=== PATIENT | female | born 1960 | race American Indian/Alaskan Native ===

== ENCOUNTER 2021-12-15 19:48 | Inpatient (IN) | payer SELFPAY ==
[2021-12-15] MEDS ORDERED: PANTOPRAZOLE 40 MG INJ IV ONE (20:16)
[2021-12-15] MEDS ORDERED: NITROGLYCERIN 0.4 MG TAB SUBL SL PRN ×2 (20:16→23:17)
[2021-12-15] MEDS ORDERED: METOCLOPRAMIDE 10 MG TAB PO ONE (20:16)
--- NOTE | 2021-12-15 20:18 | Emergency Department Report ---
ED General Adult HPI - General Chief complaint: Weakness Stated complaint: SYNOCOPE Time Seen by Provider: 12/15/21 19:55 Source: patient, EMS ( EMS documentation not available at time of chart dictation ), RN notes reviewed Mode of arrival: Stretcher Limitations: No Limitations - History of Present Illness Initial comments: Primary CARE doctor: [facility] Past medical history: Heart disease, unknown ejection fraction, diabetes, hypertension, neuropathy, possible history of breast cancer. The patient is a 61-year-old female. She presents to the ER today with a complaint of possible syncope. Patient reports that she was at the [employer], walking around," the next thing I knew I blacked out, and people were over me." Prior to the event, the patient denies physical pain. She is not sure if she hit her head, but believes that she may have. She currently denies headache and neck pain, but admits to central chest pressure. She denies vomiting, diaphoresis, exertional shortness of breath, urinary symptoms. She denies travel, surgery, immobilization, DVT and PE risk factors. She does admit to chronic neuropathic pain in her lower extremities. She feels like her chest discomfort is "coming from my reflux." -: Sudden Severity scale (0 -10): 0 Improves with: none Worsens with: none - Related Data Allergies Allergy/AdvReac Type Severity Reaction Status Date / Time No Known Allergies Allergy Verified 12/15/21 21:23 ED Review of Systems ROS: Stated complaint: SYNOCOPE Other details as noted in HPI Constitutional: denies: fever Eyes: denies: vision change ENT: denies: epistaxis Respiratory: denies: cough Cardiovascular: chest pain, syncope Gastrointestinal: denies: abdominal pain Musculoskeletal: myalgia Neurological: other (Neuropathic pain) Hematological/Lymphatic: denies: easy bleeding ED Past Medical Hx - Past Medical History Hx Hypertension: Yes Hx Diabetes: Yes Hx of Cancer: Yes (breast) Additional medical history: pt reports that she has been told that she has clogged arteries - Surgical History Past Surgical History?: Yes Hx Breast Surgery: Yes - Social History Smoking Status: Never Smoker Substance Use Type: None ED Physical Exam - General Limitations: No Limitations General appearance: alert, in no apparent distress - Head Head exam: Present: atraumatic, normocephalic - Eye Eye exam: Present: normal appearance, PERRL, EOMI. Absent: nystagmus - ENT ENT exam: Present: normal exam, normal orophraynx, mucous membranes moist, normal external ear exam - Neck Neck exam: Present: normal inspection, full ROM. Absent: tenderness, meningismus - Respiratory Respiratory exam: Present: normal lung sounds bilaterally. Absent: respiratory distress, wheezes, rales, rhonchi, stridor, decreased breath sounds - Cardiovascular Cardiovascular Exam: Present: regular rate, normal rhythm, normal heart sounds. Absent: bradycardia, tachycardia, irregular rhythm, systolic murmur, diastolic murmur, rubs, gallop - GI/Abdominal GI/Abdominal exam: Present: soft, normal bowel sounds. Absent: distended, tenderness, guarding, rebound, rigid, pulsatile mass - Extremities Exam Extremities exam: Present: normal inspection, full ROM, other (2+ pulses noted in the bilateral upper and lower extremities. There is no long bony tenderness. The muscular compartments are soft. The pelvis is stable. Allodynia appreciated to the bilateral lower extremities.). Absent: pedal edema, calf tenderness - Back Exam Back exam: Present: normal inspection. Absent: tenderness, CVA tenderness (R), CVA tenderness (L), paraspinal tenderness, vertebral tenderness - Neurological Exam Neurological exam: Present: alert, oriented X3, other (No facial droop. Tongue midline. Extraocular movements intact bilaterally. Facial sensation intact to light touch in V1, V2, V3 distribution bilaterally. 5 and a 5 strength in 4 extremities. Sensation intact to light touch in 4 extremities.). Absent: motor sensory deficit - Psychiatric Psychiatric exam: Present: normal affect, normal mood - Skin Skin exam: Present: warm, dry, intact, normal color. Absent: rash ED Course Vital Signs 12/15/21 12/15/21 12/15/21 20:00 20:20 20:21 Temperature 98.7 F Pulse Rate 90 Respiratory 16 Rate Blood Pressure 159/70 [Left] O2 Sat by Pulse 98 98 Oximetry - Reevaluation(s) Reevaluation #1: 12/15/21 21:19 Differential diagnosis, include but not limited to: Orthostasis, vagal event, acute coronary syndrome, structural cardiac disease, pulmonary embolism, closed head injury, electrolyte derangement Assessment and plan: 61-year-old female, who was afebrile, with reassuring vital signs, clinically sober with a GCS of 15, not currently tachycardic, tachypneic or hypoxic, low risk by Wells criteria for pulmonary embolism, with a negative D-dimer, moderate risk for major adverse cardiac event as per heart score, and [place] syncope rule. Treat patient's symptoms. Obtain appropriate laboratory studies. Admit patient to the medical service once initial diagnostics have resulted. Discussed this with the patient. She is agreeable to this plan of care. 12/15/21 23:12 CT scan of the brain negative for acute findings. Hyperglycemia appreciated. Insulin noted hospital physician, Dr. Marianela Gilbert to admit to [facility] ED Medical Decision Making - Lab Data Result diagrams: 12/15/21 20:41 12/15/21 20:41 Lab Results 12/15/21 12/15/21 Range/Units 20:41 20:41 WBC 10.3 (4.5-11.0) K/mm3 RBC 4.83 (3.65-5.03) M/mm3 Hgb 12.3 (10.1-14.3) gm/dl Hct 38.7 (30.3-42.9) % MCV 80 (79-97) fl MCH 25 L (28-32) pg MCHC 32 (30-34) % RDW 15.8 H (13.2-15.2) % Plt Count 318 (140-440) K/mm3 Lymph % (Auto) 23.2 (13.4-35.0) % [place] % (Auto) 5.8 (0.0-7.3) % Eos % (Auto) 2.8 (0.0-4.3) % Baso % (Auto) 1.1 (0.0-1.8) % Lymph # (Auto) 2.4 (1.2-5.4) K/mm3 [place] # (Auto) 0.6 (0.0-0.8) K/mm3 Eos # (Auto) 0.3 (0.0-0.4) K/mm3 Baso # (Auto) 0.1 (0.0-0.1) K/mm3 Seg Neutrophils % 67.1 (40.0-70.0) % Seg Neutrophils # 6.9 (1.8-7.7) K/mm3 D-Dimer 219.70 (0-234) ng/mlDDU Vital Signs 12/15/21 12/15/21 12/15/21 20:00 20:20 20:21 Temperature 98.7 F Pulse Rate 90 Respiratory 16 Rate Blood Pressure 159/70 [Left] O2 Sat by Pulse 98 98 Oximetry - EKG Data -: EKG Interpreted by Nc EKG shows normal: sinus rhythm Rate: normal - EKG Data 12/15/21 21:17 The EKG is interpreted at 19: 59 Sinus rhythm, 87 bpm there is normal axis, normal P wave axis, high left ventricular voltage/left ventricular hypertrophy, borderline atrial enlargement and motion artifact. Q waves noted in inferior leads. This is an abnormal EKG. This is not a STEMI. There is no prior for comparison. - Radiology Data Radiology results: pending, report reviewed, image reviewed CHEST 1 VIEW INDICATION: Syncope. COMPARISON: None. FINDINGS: Support devices: None. Heart: Normal. Lungs/Pleura: No acute pulmonary or pleural findings. IMPRESSION: 1. No acute findings. Signer Name: Arvind Cunningham MD Signed: 12/15/2021 7:42 PM Workstation Name: [id number] HEAD WITHOUT CONTRAST INDICATION / CLINICAL INFORMATION: Syncope. TECHNIQUE: All CT scans at this location are performed using CT dose reduction for ALARA by means of automated exposure control. COMPARISON: None available. FINDINGS: HEMORRHAGE: None. ACUTE INFARCTION: No Significant Abnormality MASS/MASS EFFECT: No Significant Abnormality CEREBRAL PARENCHYMA: No acute focal attenuation abnormality. Symmetric calcifications of the bilateral basal ganglia. VENTRICULAR SYSTEM: Normal in size and morphology for the patient's age. ORBITS: Normal as visualized. SKULL: No significant abnormality. PARANASAL SI NUSES / MASTOID AIR CELLS: Normal as visualized. ADDITIONAL FINDINGS: None. IMPRESSION: 1. No acute intracranial abnormality. Signer Name: Nilesh Benitez MD Signed: 12/15/2021 9:35 PM Critical care attestation.: If time is entered above; I have spent that time in minutes in the direct care of this critically ill patient, excluding procedure time. ED Disposition Clinical Impression: Acute chest pain, Syncope, Closed head injury, Hyperglycemia Disposition: 09 ADMITTED INPATIENT Is pt being admited?: Yes Does the pt Need Aspirin: No Condition: Good Instructions: Chest Pain (ED), Syncope (ED) Referrals: YAIMA HINKLE MD [Primary Care Provider] - 3-5 Days Heart Score - HEART Score History: Slightly suspicious EKG: Non-specific Age: 45-65 Risk factors: > 3 risk factors or hx of atherosclerotic disease Troponin: < normal limit HEART Score: 4 - EKG Read Time Time EKG Completed: 19:59 EKG Read Time: 19:59 - Critical Actions Critical Actions: 4-6 pts:12-16.6% risk of adverse cardiac event. Should be admitted
--- NOTE | 2021-12-15 20:46 | XRay Report ---
CHEST 1 VIEW INDICATION: Syncope. COMPARISON: None. FINDINGS: Support devices: None. Heart: Normal. Lungs/Pleura: No acute pulmonary or pleural findings. IMPRESSION: 1. No acute findings. Signer Name: Arvind Cunningham MD Signed: 12/15/2021 8:42 PM Workstation Name: [id number]
[2021-12-15 21:02] LABS: Basophils # (Auto) 0.1 K/mm3 (0.0-0.1); Basophils % (Auto) 1.1 % (0.0-1.8); Eosinophils # (Auto) 0.3 K/mm3 (0.0-0.4); Eosinophils % (Auto) 2.8 % (0.0-4.3); Hematocrit 38.7 % (30.3-42.9); Hemoglobin 12.3 gm/dl (10.1-14.3); Lymphocytes # (Auto) 2.4 K/mm3 (1.2-5.4); Lymphocytes % (Auto) 23.2 % (13.4-35.0); Mean Corpuscular HGB Conc 32 % (30-34); Mean Corpuscular Volume 80 fl (79-97); Monocytes # (Auto) 0.6 K/mm3 (0.0-0.8); Monocytes % (Auto) 5.8 % (0.0-7.3); Platelet Count 318 K/mm3 (140-440); Red Blood Count 4.83 M/mm3 (3.65-5.03); Red Cell Distribution Width 15.8 % (13.2-15.2)
[2021-12-15 21:17] LABS: INR 0.82 (0.87-1.13)
[2021-12-15 21:32] LABS: Alanine Aminotransferase 28 units/L (7-56); Albumin 3.9 g/dL (3.9-5); BUN/Creatinine Ratio 21; Blood Urea Nitrogen 19 mg/dL (7-17); Calcium 10.2 mg/dL (8.4-10.2); Hemolysis Index 27
[2021-12-15] MEDS ORDERED: INSULIN REGULAR, HUMAN 100 UNITS/1 ML IV ONE (21:36)
[2021-12-15] MEDS ORDERED: LACTATED RINGERS 1,000 ML IV ONE (22:37)
--- NOTE | 2021-12-15 22:39 | Cat Scan Report ---
CT HEAD WITHOUT CONTRAST INDICATION / CLINICAL INFORMATION: Syncope. TECHNIQUE: All CT scans at this location are performed using CT dose reduction for ALARA by means of automated exposure control. COMPARISON: None available. FINDINGS: HEMORRHAGE: None. ACUTE INFARCTION: No Significant Abnormality MASS/MASS EFFECT: No Significant Abnormality CEREBRAL PARENCHYMA: No acute focal attenuation abnormality. Symmetric calcifications of the bilatera l basal ganglia. VENTRICULAR SYSTEM: Normal in size and morphology for the patient's age. ORBITS: Normal as visualized. SKULL: No significant abnormality. PARANASAL SINUSES / MASTOID AIR CELLS: Normal as visualized. ADDITIONAL FINDINGS: None. IMPRESSION: 1. No acute intracranial abnormality. Signer Name: Nilesh Benitez MD Signed: 12/15/2021 10:35 PM Workstation Name: [id number]
[2021-12-15] MEDS ORDERED: ASPIRIN 81 MG TAB CHEW PO ONE (23:13)
[2021-12-15] MEDS ORDERED: DEXTROSE 50% IN WATER (25GM) 50 ML SYRINGE IV PRN (23:17)
[2021-12-15] MEDS ORDERED: MORPHINE 4 MG/1 ML INJ IV PRN ×2 (23:17)
[2021-12-15] MEDS ORDERED: ACETAMINOPHEN 325 MG TAB PO PRN ×2 (23:17)
[2021-12-15] MEDS ORDERED: MORPHINE 2 MG/1 ML INJ IV PRN (23:17)
[2021-12-15] MEDS ORDERED: traMADol 50 MG TAB PO PRN (23:17)
[2021-12-15] MEDS ORDERED: MAGNESIUM HYDROXIDE (MOM) ORAL LIQD UDC PO PRN (23:17)
--- NOTE | 2021-12-15 23:32 | History and Physical Report ---
History of Present Illness Date of examination: 12/15/21 Date of admission: 12/15/2021 Chief complaint: Syncope Chest Pain History of present illness: 61-year-old female with known history of hypertension, diabetes mellitus and history of breast cancer presents to the emergency room today with a complaint of syncope. Patient also indicates that she has had substernal chest pain. She was at a grocery store when she suddenly passed out. She denies any headache or dizziness, no fever or chills, no nausea vomiting and no abdominal pain. Patient denies any hematuria or dysuria. Chest pain has been nonradiating, no relieving or exacerbating factor. Work-up in the emergency room today, significant findings were that of hypoglycemia to 40, troponins were negative. Chest x-ray showed no acute findings. CT scan of the head shows no acute abnormality. Past History Past Medical History: diabetes, hypertension, other (Neuropathy, history of breast cancer) Past Surgical History: Other (Breast surgery) Social history: no significant social history Family history: no significant family history Medications and Allergies Allergies Allergy/AdvReac Type Severity Reaction Status Date / Time No Known Allergies Allergy Verified 12/15/21 21:23 Active Meds: Active Medications Lactated Ringer's (Lactated Ringers) 1,000 mls @ 999 mls/hr IV BOLUS ONE Stop: 12/15/21 23:37 Nitroglycerin (Nitroglycerin 0.4 Mg Tab Subl) 0.4 mg SL .Q5MIN PRN PRN Reason: Chest Pain Review of Systems Constitutional: no fever, no chills Ears, nose, mouth and throat: no nasal congestion, no sore throat Cardiovascular: chest pain, no palpitations Respiratory: no cough, no shortness of breath Gastrointestinal: no nausea, no vomiting, no diarrhea Genitourinary Female: no pelvic pain, no flank pain, no dysuria, no hematuria Musculoskeletal: no neck pain, no low back pain Integumentary: no rash, no pruritis Neurological: no headaches, no confusion Psychiatric: no anxiety, no depression Endocrine: no polyphagia, no polydipsia, no polyuria, no nocturia Exam - Constitutional Vitals: Temp Pulse Resp BP Pulse Ox 98.7 F 90 16 159/70 98 12/15/21 20:20 12/15/21 20:00 12/15/21 20:00 12/15/21 20:00 12/15/21 20:21 General appearance: Present: no acute distress, well-nourished - EENT Eyes: Present: PERRL, EOM intact. Absent: scleral icterus ENT: hearing intact, clear oral mucosa, dentition normal - Neck Neck: Present: supple, normal ROM - Respiratory Respiratory effort: normal Respiratory: bilateral: CTA - Cardiovascular Rhythm: regular Heart Sounds: Present: S1 & S2. Absent: gallop, systolic murmur, diastolic murmur, rub, click - Extremities Extremities: no ischemia, pulses intact, pulses symmetrical, No edema, normal temperature, normal color, Full ROM Peripheral Pulses: within normal limits - Abdominal General gastrointestinal: Present: soft, non-tender, non-distended, normal bowel sounds. Absent: mass - Integumentary Integumentary: Present: clear, warm, dry, normal turgor. Absent: rash - Musculoskeletal Musculoskeletal: strength equal bilaterally - Psychiatric Psychiatric: appropriate mood/affect, intact judgment & insight, memory intact, cooperative - Neurologic Neurologic: CNII-XII intact, no focal deficits, moves all extremities HEART Score - HEART Score History: Moderately suspicious EKG: Non-specific Age: 45-65 Risk factors: > 3 risk factors or hx of atherosclerotic disease Troponin: Troponin T < 0.010 ng/mL (0.00-0.029) 12/15/21 20:41 Troponin: < normal limit HEART Score: 5 - Critical Actions Critical Actions: 4-6 pts:12-16.6% risk of adverse cardiac event. Should be admitted Results - Labs CBC & Chem 7: 12/16/21 04:48 12/16/21 04:48 Labs: Abnormal lab results 12/15/21 12/15/21 12/15/21 Range/Units 20:41 20:41 20:41 MCH 25 L (28-32) pg RDW 15.8 H (13.2-15.2) % PT 12.1 L (12.2-14.9) Sec. INR 0.82 L (0.87-1.13) BUN 19 H (7-17) mg/dL Glucose 410 H (65-100) mg/dL Magnesium 2.40 H (1.7-2.3) mg/dL Alkaline Phosphatase 134 H (35-129) units/L Assessment and Plan - Patient Problems (1) Acute chest pain Current Visit: Yes Status: Acute Plan to address problem: Patient admitted and placed on telemetry. We check serial cardiac enzymes. Patient placed on daily aspirin. We will schedule for stress test. (2) Syncope Current Visit: Yes Status: Acute Plan to address problem: Etiology unclear. Patient will be scheduled for carotid Doppler and echocardiogram. (3) Hypertension Current Visit: Yes Status: Acute Plan to address problem: We will resume routine home medications and monitor vital signs closely. (4) Hyperglycemia Current Visit: Yes Status: Acute Plan to address problem: Patient placed on sliding scale insulin. We will monitor Accu-Cheks closely. (5) DVT prophylaxis Current Visit: Yes Status: Acute (6) Full code status Current Visit: Yes Status: Acute Plan to address problem: Patient is full code.
[2021-12-15] MEDS ORDERED: DEXTROSE 10% *Hypoglycemia IV PRN (23:34)
[2021-12-15 23:46] LABS: Basophils # (Auto) 0.1 K/mm3 (0.0-0.1); Basophils % (Auto) 0.9 % (0.0-1.8); Eosinophils # (Auto) 0.2 K/mm3 (0.0-0.4); Eosinophils % (Auto) 2.4 % (0.0-4.3); Hematocrit 37.2 % (30.3-42.9); Hemoglobin 11.9 gm/dl (10.1-14.3); Lymphocytes # (Auto) 3.1 K/mm3 (1.2-5.4); Lymphocytes % (Auto) 29.9 % (13.4-35.0); Mean Corpuscular HGB Conc 32 % (30-34); Mean Corpuscular Volume 79 fl (79-97); Monocytes # (Auto) 0.7 K/mm3 (0.0-0.8); Monocytes % (Auto) 6.5 % (0.0-7.3); Platelet Count 271 K/mm3 (140-440); Red Blood Count 4.69 M/mm3 (3.65-5.03); Red Cell Distribution Width 15.9 % (13.2-15.2)
[2021-12-16 00:02] LABS: BUN/Creatinine Ratio 28; Blood Urea Nitrogen 22 mg/dL (7-17); Calcium 9.7 mg/dL (8.4-10.2); Hemolysis Index 6
[2021-12-16] MEDS: hydrALAZINE 20 MG/1 ML INJ IV PRN (03:15)
[2021-12-16 05:38] LABS: Basophils # (Auto) 0.1 K/mm3 (0.0-0.1); Basophils % (Auto) 0.9 % (0.0-1.8); Eosinophils # (Auto) 0.3 K/mm3 (0.0-0.4); Eosinophils % (Auto) 2.6 % (0.0-4.3); Hematocrit 36.8 % (30.3-42.9); Hemoglobin 11.7 gm/dl (10.1-14.3); Lymphocytes # (Auto) 3.9 K/mm3 (1.2-5.4); Lymphocytes % (Auto) 38.9 % (13.4-35.0); Mean Corpuscular HGB Conc 32 % (30-34); Mean Corpuscular Volume 80 fl (79-97); Monocytes # (Auto) 0.7 K/mm3 (0.0-0.8); Monocytes % (Auto) 6.7 % (0.0-7.3); Platelet Count 279 K/mm3 (140-440); Red Blood Count 4.61 M/mm3 (3.65-5.03); Red Cell Distribution Width 15.4 % (13.2-15.2)
[2021-12-16 05:55] LABS: Blood Urea Nitrogen 18 mg/dL (7-17); Calcium 9.3 mg/dL (8.4-10.2); Hemolysis Index 4
[2021-12-16 05:59] LABS: BUN/Creatinine Ratio 30
[2021-12-16] MEDS: INSULIN LISPRO 100 UNIT/ML SUB-Q SCH ×4 (07:30→21:49)
[2021-12-16] MEDS: amLODIPine 10 MG TAB PO SCH (10:53)
[2021-12-16] MEDS: ASPIRIN EC 325 MG TAB PO SCH (10:53)
[2021-12-16] MEDS: LOSARTAN 25 MG TAB PO SCH (11:15)
--- NOTE | 2021-12-16 11:56 | Vascular Lab Report ---
DUPLEX DOPPLER ULTRASOUND CAROTID, BILATERAL INDICATION / CLINICAL INFORMATION: syncope. COMPARISON: None available. FINDINGS: RIGHT CAROTID: - PLAQUE ESTIMATE (%): < 50% - CCA velocity: 96 cm/sec. - ICA peak systolic velocity: 117 cm/sec. - ICA/CCA PSV Ratio: 1.22 Right Vertebral Artery: Antegrade flow. LEFT CAROTID: - PLAQUE ESTIMATE: < 50% - CCA velocity: 122 cm/sec. - ICA peak systolic velocity: 124 cm/sec. - ICA/CCA PSV Ratio: 1.01 Left Vertebral Artery: Antegrade flow. IMPRESSION: 1. Right Internal Carotid Artery: Less than 50% diameter stenosis. 2. Left Internal Carotid Artery: Less than 50% diameter stenosis. Velocity criteria are extrapolated from diameter data as defined by the Society of Radiologists in Ul trasound Consensus Conference, Radiology 2003; 229;340-346. NO STENOSIS (NORMAL) * Plaque = none; ICA PSV < 125 cm/sec; ICA/CCA PSV Ratio < 2.0 <50% STENOSIS * Plaque < 50%; ICA PSV < 125 cm/sec; ICA/CCA PSV Ratio < 2.0 50-69% STENOSIS * Plaque > 50%; ICA PSV = 125-230 cm/sec; ICA/CCA PSV Ratio = 2.0-4.0 >70% BUT <100% STENOSIS * Plaque > 50%; ICA PSV > 230 cm/sec; ICA/CCA PSV Ratio > 4.0 NEAR OCCLUSION * Plaque = visible lumen; ICA PSV = high/low/none; ICA/CCA PSV Ratio = variable TOTAL OCCLUSION * Plaque = no lumen; ICA PSV = none; ICA/CCA PSV Ratio = N/A Signer Name: Eze Metcalf MD Signed: 12/16/2021 11:52 AM Workstation Name: [employer]
--- NOTE | 2021-12-16 13:07 | Consultation ---
History of Present Illness Consult date: 12/16/21 Consult reason: syncope History of present illness: The patient is a 61-year-old woman with diabetes and coronary artery disease, ad mitted following a syncope. The syncopal spell occurred while she was shopping in the store. She reports no palpitations, dizziness or chest pain preceding the syncope. There was no seizures reported. The syncope was brief and she was brought to the emergency room by the fuller brush man. Major finding on examination was a markedly elevated blood sugar, greater than 500 in the field and 410 in the emergency room. She reports a history of coronary artery disease which is on medical therapy, following an invasive evaluation at [facility] about a year ago. Her subsequent follow-up has been with doctors at [facility]. She has had no chest pain, no shortness of breath, no lower extremity edema, and no palpitations. Work-up so far in the hospital, EKG is sinus rhythm with left ventricle hypertrophy by voltage criteria, otherwise normal EKG with no ST or T wave changes. Chest x-ray shows a normal-sized cardiac silhouette and clear lungs. Serial troponin levels x2 were negative. Past History Past Medical History: CAD, diabetes, hypertension, other (Neuropathy, history of breast cancer) Past Surgical History: Other (Breast surgery) Social history: no significant social history Family history: no significant family history Medications and Allergies Allergies Allergy/AdvReac Type Severity Reaction Status Date / Time No Known Allergies Allergy Verified 12/15/21 21:23 Active Meds: Active Medications Acetaminophen (Acetaminophen 325 Mg Tab) 650 mg PO Q4H PRN PRN Reason: Pain MILD(1-3)/Fever >100.5/RAPP Amlodipine Besylate (Amlodipine 10 Mg Tab) 10 mg PO QDAY REPLACED BY [facility] Last Admin: 12/16/21 10:53 Dose: 10 mg Aspirin (Aspirin Ec 325 Mg Tab) 325 mg PO QDAY REPLACED BY [facility] Last Admin: 12/16/21 10:53 Dose: 325 mg Dextrose (Dextrose 10% *Hypoglycemia) 0 ml IV PRN PRN PRN Reason: Hypoglycemia Hydralazine HCl (Hydralazine 20 Mg/1 Ml Inj) 10 mg IV Q6HR PRN PRN Reason: Hypertension Stop: 12/20/21 02:48 Last Admin: 12/16/21 03:15 Dose: 10 mg Insulin Human Lispro (Insulin Lispro 100 Unit/Ml) 0 unit SUB-Q ACHS REPLACED BY [facility]; Protocol Last Admin: 12/16/21 11:19 Dose: 2 unit Losartan Potassium (Losartan 25 Mg Tab) 25 mg PO QDAY REPLACED BY [facility] Last Admin: 12/16/21 11:15 Dose: 25 mg Magnesium Hydroxide (Magnesium Hydroxide (Mom) Oral Liqd Udc) 30 ml PO Q4H PRN PRN Reason: Constipation Morphine Sulfate (Morphine 2 Mg/1 Ml Inj) 2 mg IV Q4H PRN PRN Reason: Pain, Moderate (4-6) Morphine Sulfate (Morphine 4 Mg/1 Ml Inj) 4 mg IV Q4H PRN PRN Reason: Pain , Severe (7-10) Morphine Sulfate (Morphine 4 Mg/1 Ml Inj) 2 mg IV Q5MIN PRN PRN Reason: Chest Pain unrelieved by NTG Nitroglycerin (Nitroglycerin 0.4 Mg Tab Subl) 0.4 mg SL Q5M PRN PRN Reason: Chest Pain Ondansetron HCl (Ondansetron 4 Mg/2 Ml Inj) 4 mg IV Q8H PRN PRN Reason: Nausea And Vomiting Sodium Chloride (Sodium Chloride 0.9% 10 Ml Flush Syringe) 10 ml IV BID REPLACED BY [facility] Last Admin: 12/16/21 11:31 Dose: 10 ml Sodium Chloride (Sodium Chloride 0.9% 10 Ml Flush Syringe) 10 ml IV PRN PRN PRN Reason: LINE FLUSH Tramadol HCl (Tramadol 50 Mg Tab) 50 mg PO Q6H PRN PRN Reason: Pain, Moderate (4-6) Review of Systems Cardiovascular: syncope, no chest pain, no orthopnea, no palpitations, no rapid/irregular heart beat, no edema, no lightheadedness, no shortness of breath Physical Examination Vital Signs Pulse Resp BP Pulse Ox 90 16 159/70 98 12/15/21 20:00 12/15/21 20:00 12/15/21 20:00 12/15/21 20:00 General appearance: no acute distress HEENT: Positive: PERRL Neck: Positive: neck supple Cardiac: Positive: Reg Rate and Rhythm Lungs: Positive: clear to auscultation Neuro: Positive: Grossly Intact Abdomen: Positive: Soft Female genitourinary: deferred Skin: Positive: Clear Extremities: Absent: edema Results 12/16/21 04:48 12/16/21 04:48 Cardiac Enzymes 03/29/22 Range/Units 20:41 AST 16 (5-40) units/L Coagulation 12/15/21 Range/Units 20:41 PT 12.1 L (12.2-14.9) Sec. INR 0.82 L (0.87-1.13) CBC 12/15/21 12/15/21 12/16/21 Range/Units 20:41 23:31 04:48 WBC 10.3 10.3 10.1 (4.5-11.0) K/mm3 RBC 4.83 4.69 4.61 (3.65-5.03) M/mm3 Hgb 12.3 11.9 11.7 (10.1-14.3) gm/dl Hct 38.7 37.2 36.8 (30.3-42.9) % Plt Count 318 271 279 (140-440) K/mm3 Lymph # (Auto) 2.4 3.1 3.9 (1.2-5.4) K/mm3 [place] # (Auto) 0.6 0.7 0.7 (0.0-0.8) K/mm3 Eos # (Auto) 0.3 0.2 0.3 (0.0-0.4) K/mm3 Baso # (Auto) 0.1 0.1 0.1 (0.0-0.1) K/mm3 Comprehensive Metabolic Panel 12/15/21 12/15/21 12/16/21 Range/Units 20:41 23:31 04:48 Sodium 138 141 142 (137-145) mmol/L Potassium 4.3 4.0 3.8 (3.6-5.0) mmol/L Chloride 100.4 104.7 106.9 (98-107) mmol/L Carbon Dioxide 24 26 23 (22-30) mmol/L BUN 19 H 22 H 18 H (7-17) mg/dL Creatinine 0.9 0.8 0.6 (0.6-1.2) mg/dL Glucose 410 H 240 H 163 H (65-100) mg/dL Calcium 10.2 9.7 9.3 (8.4-10.2) mg/dL AST 16 (5-40) units/L ALT 28 (7-56) units/L Alkaline Phosphatase 134 H (35-129) units/L Total Protein 6.9 (6.3-8.2) g/dL Albumin 3.9 (3.9-5) g/dL EKG interpretations - Telemetry EKG Rhythm: Sinus Rhythm Assessment and Plan - Patient Problems (1) Syncope Current Visit: Yes Status: Acute Plan to address problem: Patient presented with syncope, etiology unclear, most significant objective finding was uncontrolled diabetes with a blood sugar over 500. EKG, serial cardiac enzymes and telemetry monitoring are all negative. Patient has a history of coronary artery disease on conservative management, we will order an echocardiogram for left ventricular function assessment, and consider a predischarge thallium stress test.
--- NOTE | 2021-12-16 13:56 | Event Note ---
Date: 12/16/21 The patient was noted with profound, sinus bradycardia this afternoon reportedly while asleep. There was an up to 4.2-second pause. Heart rate increased to normal on waking. Work-up of her syncope so far: TSH level was normal at 1.5. Magnesium level 2.4. Potassium level was normal at 4.0. Patient is not on AV alondra blocking agents. Echocardiogram done this afternoon shows normal left ventricular systolic function with ejection fraction 60 to 65%. Marked bradycardia during sleep may indicate sleep apnea, but in the setting of recent syncope and we will request an electrophysiology consult.
--- NOTE | 2021-12-16 14:27 | Electrocardiograph Report ---
[facility] Test Date: 2021-12-15 Test Time: 19:59:37 Pat Name: JOHAN JUAN Department: Room: A458 1 Gender: F Sales Leader: DORCAS : 1960 Requested By: WILLIAM PRESTON Order Number: [id number] Reading MD: Tia Brambila Measurements Intervals [place] Rate: 87 P: 61 [place]: 130 QRS: 28 QRSD: 74 T: 89 QT: 370 QTc: 445 Interpretive Statements Sinus rhythm Probable left atrial enlargement Early repolarization ST changes No previous ECG available for comparison Electronically Signed On 12-16-2021 14:27:32 EDT by Tia Brambila
--- NOTE | 2021-12-16 14:32 | Electrocardiograph Report ---
[facility] Test Date: 2021-12-16 Test Time: 07:48:54 Pat Name: JOHAN JUAN Department: Room: A458 1 Gender: F Dyer Helper: JAMI : 1960 Requested By: LUCY BROWN Order Number: [id number] Reading MD: Tia Brambila Measurements Intervals [place] Rate: 80 P: 74 [place]: 124 QRS: 40 QRSD: 76 T: 75 QT: 391 QTc: 451 Interpretive Statements Sinus rhythm Early repolarization ST changes Compared to ECG 12/15/2021 19:59:37 No significant change Electronically Signed On 12-16-2021 14:31:58 EDT by Tia Brambila
--- NOTE | 2021-12-16 14:34 | Electrocardiograph Report ---
[facility] Test Date: 2021-12-16 Test Time: 12:04:55 Pat Name: JOHAN JUAN Department: Room: A458 1 Gender: F [facility] Liaison: JAMI : 1960 Requested By: WILLIAM PRESTON Order Number: [id number] Reading MD: Tia Brambila Measurements Intervals [place] Rate: 91 P: 77 WI: 128 QRS: 53 QRSD: 68 T: 55 QT: 357 QTc: 441 Interpretive Statements Sinus rhythm Consider left ventricular hypertrophy Compared to ECG 12/16/2021 07:48:54 No significant changes Electronically Signed On 12-16-2021 14:34:21 EDT by Tia Brambila
--- NOTE | 2021-12-16 16:27 | Progress Note ---
Assessment and Plan 61 YO woman with h/o multivessel CAD which is being medically managed and DM who presented to hospital after sudden episode of syncope while shopping at a store. Telemetry monitoring during hospitalization has captured episodes of her heart slowing down with sinus bradycardia and rates in the low 30s during daytime hours. Echo during current hospitalization revealed normal LVEF with no significant valvular lesions. Assessment and plan: 1. Syncope likely due to underlying paroxysmal bradycardia 2. Episodes of profound sinus bradycardia and pauses suggestive of sinus node dysfunction. 3. Multivessel CAD with normal LV systolic function 4. DM with hyperglycemia --Work-up in the emergency room showed hypoglycemia to 40, troponins were negative. Chest x-ray showed no acute findings. CT scan of the head shows no acute abnormality. Plan for stress test tomorrow EP cardiology is consulted for possible pacemaker placement EP cardiology recommended dual chamber PPM implant and beta indigo therapy to be started after PPM implant. Tentatively, plan for PPM tuesday. Subjective Date of service: 12/16/21 Interval history: Patient seen and examined. Medical records and medication list reviewed. No acute event overnight noted by the RN. Patient denies any chest pain or difficulty breathing. Patient is tolerating diet. Discussed plan of care at bedside with patient. Objective - Exam Narrative Exam: GENERAL: well-developed and well-nourished lying on bed appeared to be in no discomfort. HEENT: Normocephalic. Atraumatic. No conjunctival congestion or icterus. Patient has moist mucous membranes. NECK: Supple. Trachea midline. CHEST/LUNGS: Clear to auscultated bilaterally, breathing nonlabored. No wheezes crackles or rhonchi. HEART/CARDIOVASCULAR: S1 and S2 positive. ABDOMEN: Abdomen is soft, nontender. Patient has normal bowel sounds. SKIN: There is no rash. Warm and dry. NEURO: No focal motor deficit. Follows command. MUSCULOSKELETAL: No joint effusion or tenderness. EXTRIMITY: No edema, no cyanosis or clubbing. PSYCH: Cooperative. - Constitutional Vitals: Vital Signs - 12hr 12/16/21 12/16/21 12/16/21 04:29 08:14 10:19 Temperature 98.4 F 98.6 F 98.4 F Pulse Rate 88 Respiratory 18 14 16 Rate Blood Pressure 153/75 161/75 150/80 O2 Sat by Pulse 97 Oximetry 12/16/21 12/16/21 12/16/21 10:53 11:00 11:15 Temperature Pulse Rate 86 84 86 Respiratory Rate Blood Pressure 150/80 150/80 O2 Sat by Pulse 98 Oximetry 12/16/21 12/16/21 15:24 15:40 Temperature 98.6 F 99.2 F Pulse Rate 87 Respiratory 16 Rate Blood Pressure 130/59 132/67 O2 Sat by Pulse 94 Oximetry - Labs CBC & Chem 7: 12/18/21 05:37 12/18/21 05:37 Labs: Abnormal lab results 12/15/21 12/15/21 12/15/21 Range/Units 20:41 20:41 20:41 MCH 25 L (28-32) pg RDW 15.8 H (13.2-15.2) % Lymph % (Auto) (13.4-35.0) % PT 12.1 L (12.2-14.9) Sec. INR 0.82 L (0.87-1.13) BUN 19 H (7-17) mg/dL Glucose 410 H (65-100) mg/dL POC Glucose (70-105) mg/dL Magnesium 2.40 H (1.7-2.3) mg/dL Alkaline Phosphatase 134 H (35-129) units/L 12/15/21 12/15/21 12/16/21 Range/Units 23:31 23:31 01:24 MCH 25 L (28-32) pg RDW 15.9 H (13.2-15.2) % Lymph % (Auto) (13.4-35.0) % PT (12.2-14.9) Sec. INR (0.87-1.13) BUN 22 H (7-17) mg/dL Glucose 240 H (65-100) mg/dL POC Glucose 197 H (70-105) mg/dL Magnesium (1.7-2.3) mg/dL Alkaline Phosphatase (35-129) units/L 12/16/21 12/16/21 Range/Units 04:48 04:48 MCH 25 L (28-32) pg RDW 15.4 H (13.2-15.2) % Lymph % (Auto) 38.9 H (13.4-35.0) % PT (12.2-14.9) Sec. INR (0.87-1.13) BUN 18 H (7-17) mg/dL Glucose 163 H (65-100) mg/dL POC Glucose (70-105) mg/dL Magnesium (1.7-2.3) mg/dL Alkaline Phosphatase (35-129) units/L HEART Score - HEART Score EKG: Non-specific Age: 45-65 Risk factors: > 3 risk factors or hx of atherosclerotic disease Troponin: Troponin T < 0.010 ng/mL (0.00-0.029) 12/16/21 04:48 Troponin: < normal limit - Critical Actions Critical Actions: 4-6 pts:12-16.6% risk of adverse cardiac event. Should be admitted
--- NOTE | 2021-12-16 16:41 | Consultation ---
History of Present Illness Consult date: 12/16/21 Consult reason: syncope History of present illness: Electrophysiology Consult 61 YO woman with h/o multivessel CAD which is being medically managed and DM who presented to hospital after sudden episode of syncope while shopping at a store. She denies any preceeding dizzyness, palpitations, lightheadedness chest pair or other warning symptoms. She did not sustain any significant injuries as a result of syncope and felt fairly normal after she regained consciousness. Telemetry monitoring during hospitalization has captured episodes of her heart slowing down with sinus bradycardia and rates in the low 30s during daytime hours. She also had sinus pauses up to 5 seconds. After the episode, her heart rate abruptly increased to the 70s. Echo during current hospitalization revealed normal LVEF with no significant valvular lesions. Past History Past Medical History: CAD, diabetes, hypertension, other (Neuropathy, history of breast cancer) Past Surgical History: Other (Breast surgery) Social history: no significant social history Family history: no significant family history Medications and Allergies Allergies Allergy/AdvReac Type Severity Reaction Status Date / Time No Known Allergies Allergy Verified 12/15/21 21:23 Active Meds: Active Medications Acetaminophen (Acetaminophen 325 Mg Tab) 650 mg PO Q4H PRN PRN Reason: Pain MILD(1-3)/Fever >100.5/RAPP Amlodipine Besylate (Amlodipine 10 Mg Tab) 10 mg PO QDAY [facility] Last Admin: 12/16/21 10:53 Dose: 10 mg Aspirin (Aspirin Ec 325 Mg Tab) 325 mg PO QDAY [facility] Last Admin: 12/16/21 10:53 Dose: 325 mg Dextrose (Dextrose 10% *Hypoglycemia) 0 ml IV PRN PRN PRN Reason: Hypoglycemia Hydralazine HCl (Hydralazine 20 Mg/1 Ml Inj) 10 mg IV Q6HR PRN PRN Reason: Hypertension Stop: 12/20/21 02:48 Last Admin: 12/16/21 03:15 Dose: 10 mg Insulin Human Lispro (Insulin Lispro 100 Unit/Ml) 0 unit SUB-Q [facility]; Protocol Last Admin: 12/16/21 11:19 Dose: 2 unit Losartan Potassium (Losartan 25 Mg Tab) 25 mg PO QDAY [facility] Last Admin: 12/16/21 11:15 Dose: 25 mg Magnesium Hydroxide (Magnesium Hydroxide (Mom) Oral Liqd Udc) 30 ml PO Q4H PRN PRN Reason: Constipation Morphine Sulfate (Morphine 2 Mg/1 Ml Inj) 2 mg IV Q4H PRN PRN Reason: Pain, Moderate (4-6) Morphine Sulfate (Morphine 4 Mg/1 Ml Inj) 4 mg IV Q4H PRN PRN Reason: Pain , Severe (7-10) Morphine Sulfate (Morphine 4 Mg/1 Ml Inj) 2 mg IV Q5MIN PRN PRN Reason: Chest Pain unrelieved by NTG Nitroglycerin (Nitroglycerin 0.4 Mg Tab Subl) 0.4 mg SL Q5M PRN PRN Reason: Chest Pain Ondansetron HCl (Ondansetron 4 Mg/2 Ml Inj) 4 mg IV Q8H PRN PRN Reason: Nausea And Vomiting Sodium Chloride (Sodium Chloride 0.9% 10 Ml Flush Syringe) 10 ml IV BID LEEANN Last Admin: 12/16/21 11:31 Dose: 10 ml Sodium Chloride (Sodium Chloride 0.9% 10 Ml Flush Syringe) 10 ml IV PRN PRN PRN Reason: LINE FLUSH Tramadol HCl (Tramadol 50 Mg Tab) 50 mg PO Q6H PRN PRN Reason: Pain, Moderate (4-6) Physical Examination Vital Signs Pulse Resp BP Pulse Ox 90 16 159/70 98 12/15/21 20:00 12/15/21 20:00 12/15/21 20:00 12/15/21 20:00 Results 12/16/21 04:48 12/16/21 04:48 Cardiac Enzymes 12/15/21 Range/Units 20:41 AST 16 (5-40) units/L Coagulation 12/15/21 Range/Units 20:41 PT 12.1 L (12.2-14.9) Sec. INR 0.82 L (0.87-1.13) CBC 12/15/21 12/15/21 12/16/21 Range/Units 20:41 23:31 04:48 WBC 10.3 10.3 10.1 (4.5-11.0) K/mm3 RBC 4.83 4.69 4.61 (3.65-5.03) M/mm3 Hgb 12.3 11.9 11.7 (10.1-14.3) gm/dl Hct 38.7 37.2 36.8 (30.3-42.9) % Plt Count 318 271 279 (140-440) K/mm3 Lymph # (Auto) 2.4 3.1 3.9 (1.2-5.4) K/mm3 Love # (Auto) 0.6 0.7 0.7 (0.0-0.8) K/mm3 Eos # (Auto) 0.3 0.2 0.3 (0.0-0.4) K/mm3 Baso # (Auto) 0.1 0.1 0.1 (0.0-0.1) K/mm3 Comprehensive Metabolic Panel 12/15/21 12/15/21 12/16/21 Range/Units 20:41 23:31 04:48 Sodium 138 141 142 (137-145) mmol/L Potassium 4.3 4.0 3.8 (3.6-5.0) mmol/L Chloride 100.4 104.7 106.9 (98-107) mmol/L Carbon Dioxide 24 26 23 (22-30) mmol/L BUN 19 H 22 H 18 H (7-17) mg/dL Creatinine 0.9 0.8 0.6 (0.6-1.2) mg/dL Glucose 410 H 240 H 163 H (65-100) mg/dL Calcium 10.2 9.7 9.3 (8.4-10.2) mg/dL AST 16 (5-40) units/L ALT 28 (7-56) units/L Alkaline Phosphatase 134 H (35-129) units/L Total Protein 6.9 (6.3-8.2) g/dL Albumin 3.9 (3.9-5) g/dL Assessment and Plan 1. Syncope 2. Episodes of profound sinus bradycardia and pauses suggestive of sinus node dysfunction. 3. Multivessel CAD with normal LV systolic function 4. DM Recommend: Dual chamber PPM implant and beta indigo therapy to be started after PPM implant. Extensively discussed with patient and her sister. She is currently reluctant to proceed but wants to think aobut it further. Tentatively, will plan for PPM tuesday.
[2021-12-17] MEDS: INSULIN LISPRO 100 UNIT/ML SUB-Q SCH ×4 (07:30→21:55)
[2021-12-17] MEDS ORDERED: REGADENOSON 0.4 MG/5 ML INJ IV ONE (08:04)
[2021-12-17] MEDS: amLODIPine 10 MG TAB PO SCH (11:42)
[2021-12-17] MEDS: ASPIRIN EC 325 MG TAB PO SCH (11:42)
[2021-12-17] MEDS: LOSARTAN 25 MG TAB PO SCH (11:42)
--- NOTE | 2021-12-17 12:20 | Nuclear Medicine Report ---
APPROVED REPORT Exam: Nuclear Stress Test Indication: Chest pain BMI: 0 Stress Test Details HR Max Heart Rate (APMHR): 160 bpm Target HR (85% APMHR): 136 bpm BP ECG Resting ECG: Sinus Rhythm Stress ECG: Sinus Rhythm ST Change: None Arrhythmia: None Recovery ECG: Sinus Rhythm Recovery ST Change: None Recovery Arrhythmia: None Stress ECG Conclusion No chest pain and no ST changes with pharmacologic stress. Myocardial perfusion images are pending. NM EXAM: Myocardial Perfusion REST/STRESS Imaging Protocol: Rest Tc-99m/Stress Tc-99m 1 day Resting Data Rest SPECT myocardial perfusion imaging was performed in supine position 45 minutes following the intravenous injection of 10 mCi of Tc-99m Myoview. Time of rest injection: 644 Date: 12/17/2021 Pharmacologic Stress Pharmacologic stress test was performed by injecting Regadenoson 0.4 mg IV push followed by the intravenous injection of 28 mCi of Tc-99m Tetrofosmin. Time of stress injection: Date: 12/17/2021 Study Data TID = 0.85. Perfusion Wall Motion Normal left ventricular systolic function, ejection fraction 72%. Nuclear Conclusion ECG Findings: negative for ischemia Clinical Findings: negative for ischemia Nuclear Findings: negative for ischemia Left Ventricular Function: normal Risk Study: low Normal rest and stress myocardial perfusion study. Normal left ventricular systolic function, ejection fraction 72%. Normal study. Conclusion No chest pain and no ST changes with pharmacologic stress. Myocardial perfusion images are pending.
--- NOTE | 2021-12-17 12:23 | Progress Note ---
Assessment and Plan - Patient Problems (1) Syncope Current Visit: Yes Status: Acute Plan to address problem: Patient presented with syncope, etiology unclear, most significant objective finding was uncontrolled diabetes with a blood sugar over 500. EKG, serial ca rdiac enzymes and telemetry monitoring are all negative. Further telemetry monitoring, patient developed transient, profound bradycardia with an up to 4-5 second pause. She is scheduled to undergo a pacemaker implant tomorrow. Echocardiogram shows normal left ventricular systolic function, ejection fraction 60 to 65%. A Lexiscan thallium stress test done today showed normal myocardial perfusion study. Subjective Date of service: 12/17/21 Principal diagnosis: Syncope Interval history: Patient is comfortable, no new cardiac complaints. She underwent a Lexiscan thallium stress test today, the result is normal myocardial perfusion study. She is scheduled to undergo pacemaker implant tomorrow morning for syncope and transient, profound bradycardia on telemetry monitoring. Objective Vital Signs Temp Pulse Resp BP Pulse Ox 12/17/21 11:17 97.4 F L 88 151/68 99 12/17/21 03:35 98.4 F 79 18 151/71 99 12/17/21 03:02 81 12/16/21 23:13 99.1 F 85 20 167/90 97 12/16/21 22:00 99 12/16/21 19:38 98.5 F 93 H 18 151/71 99 12/16/21 15:40 99.2 F 16 132/67 12/16/21 15:24 98.6 F 87 130/59 94 - Physical Examination HEENT: Positive: PERRL Neck: Positive: neck supple Cardiac: Positive: Reg Rate and Rhythm Lungs: Positive: clear to auscultation Neuro: Positive: Grossly Intact Abdomen: Positive: Soft Skin: Positive: Clear Extremities: Absent: edema
[2021-12-17] MEDS ORDERED: SODIUM CHLORIDE 0.9% 500 ML 500 ML IV SCH (13:00)
[2021-12-17 15:05] LABS: Blood Urea Nitrogen 14 mg/dL (7-17); Calcium 9.5 mg/dL (8.4-10.2); Hemolysis Index 44
[2021-12-17 15:08] LABS: Basophils # (Auto) 0.1 K/mm3 (0.0-0.1); Basophils % (Auto) 0.9 % (0.0-1.8); Eosinophils # (Auto) 0.1 K/mm3 (0.0-0.4); Eosinophils % (Auto) 1.3 % (0.0-4.3); Hematocrit 40.4 % (30.3-42.9); Hemoglobin 12.6 gm/dl (10.1-14.3); Lymphocytes # (Auto) 2.2 K/mm3 (1.2-5.4); Lymphocytes % (Auto) 20.8 % (13.4-35.0); Mean Corpuscular HGB Conc 31 % (30-34); Mean Corpuscular Volume 81 fl (79-97); Monocytes # (Auto) 0.6 K/mm3 (0.0-0.8); Monocytes % (Auto) 5.5 % (0.0-7.3); Platelet Count 252 K/mm3 (140-440); Red Cell Distribution Width 15.6 % (13.2-15.2)
[2021-12-17 15:12] LABS: BUN/Creatinine Ratio 20
--- NOTE | 2021-12-17 18:03 | Progress Note ---
Assessment and Plan 61 YO woman with h/o multivessel CAD which is being medically managed and DM who presented to hospital after sudden episode of syncope while shopping at a store. Telemetry monitoring during hospitalization has captured episodes of her heart slowing down with sinus bradycardia and rates in the low 30s during daytime hours. Echo during current hospitalization revealed normal LVEF with no significant valvular lesions. Assessment and plan: 1. Syncope likely due to underlying paroxysmal bradycardia 2. Episodes of profound sinus bradycardia and pauses suggestive of sinus node dysfunction. 3. Multivessel CAD with normal LV systolic function 4. DM with hyperglycemia --Work-up in the emergency room showed hypoglycemia to 40, troponins were negative. Chest x-ray showed no acute findings. CT scan of the head shows no acute abnormality. EP cardiology is consulted for possible pacemaker placement EP cardiology recommended dual chamber PPM implant and beta indigo therapy to be started after PPM implant. She underwent a Lexiscan thallium stress test today, the result is normal myocardial perfusion study. She is scheduled to undergo pacemaker implant tomorrow morning for syncope and transient, profound bradycardia on telemetry monitoring. Subjective Date of service: 12/17/21 Principal diagnosis: Syncope Interval history: Patient seen and examined. Medical records and medication list reviewed. No acute event overnight noted by the RN. Patient denies any chest pain or difficulty breathing. Patient is tolerating diet. Discussed plan of care at bedside with patient. Objective - Exam Narrative Exam: GENERAL: well-developed and well-nourished lying on bed appeared to be in no discomfort. HEENT: Normocephalic. Atraumatic. No conjunctival congestion or icterus. Patient has moist mucous membranes. NECK: Supple. Trachea midline. CHEST/LUNGS: Clear to auscultated bilaterally, breathing nonlabored. No wheezes crackles or rhonchi. HEART/CARDIOVASCULAR: S1 and S2 positive. ABDOMEN: Abdomen is soft, nontender. Patient has normal bowel sounds. SKIN: There is no rash. Warm and dry. NEURO: No focal motor deficit. Follows command. MUSCULOSKELETAL: No joint effusion or tenderness. EXTRIMITY: No edema, no cyanosis or clubbing. PSYCH: Cooperative. - Constitutional Vitals: Vital Signs - 12hr 12/17/21 12/17/21 12/17/21 08:48 09:52 10:00 Temperature Pulse Rate Respiratory Rate Blood Pressure 186/82 187/85 O2 Sat by Pulse 99 Oximetry 12/17/21 12/17/21 12/17/21 10:02 10:03 10:04 Temperature Pulse Rate Respiratory Rate Blood Pressure 157/43 122/67 138/63 O2 Sat by Pulse Oximetry 12/17/21 12/17/21 12/17/21 10:05 10:06 10:07 Temperature Pulse Rate Respiratory Rate Blood Pressure 145/70 138/68 139/66 O2 Sat by Pulse Oximetry 12/17/21 12/17/21 12/17/21 10:08 10:09 10:10 Temperature Pulse Rate Respiratory Rate Blood Pressure 131/64 128/64 125/63 O2 Sat by Pulse Oximetry 12/17/21 12/17/21 12/17/21 10:11 10:12 11:17 Temperature 97.4 F L Pulse Rate 88 Respiratory Rate Blood Pressure 124/61 112/61 151/68 O2 Sat by Pulse 99 Oximetry 12/17/21 12/17/21 15:00 15:45 Temperature 98.3 F Pulse Rate 88 91 H Respiratory 18 Rate Blood Pressure 139/73 O2 Sat by Pulse 97 Oximetry - Labs CBC & Chem 7: 12/18/21 05:37 12/18/21 05:37 Labs: Abnormal lab results 12/16/21 12/16/21 12/16/21 Range/Units 07:32 11:18 16:59 MCH (28-32) pg RDW (13.2-15.2) % Seg Neutrophils % (40.0-70.0) % Sodium (137-145) mmol/L Carbon Dioxide (22-30) mmol/L Glucose (65-100) mg/dL POC Glucose 170 H 150 H 343 H (70-105) mg/dL Hemoglobin A1c (4-6) % 12/16/21 12/17/21 12/17/21 Range/Units 20:36 04:48 11:38 MCH (28-32) pg RDW (13.2-15.2) % Seg Neutrophils % (40.0-70.0) % Sodium (137-145) mmol/L Carbon Dioxide (22-30) mmol/L Glucose (65-100) mg/dL POC Glucose 338 H 292 H (70-105) mg/dL Hemoglobin A1c 12.4 H (4-6) % 12/17/21 12/17/21 12/17/21 Range/Units 14:27 14:27 16:25 MCH 25 L (28-32) pg RDW 15.6 H (13.2-15.2) % Seg Neutrophils % 71.5 H (40.0-70.0) % Sodium 134 L D (137-145) mmol/L Carbon Dioxide 21 L (22-30) mmol/L Glucose 372 H (65-100) mg/dL POC Glucose 359 H (70-105) mg/dL Hemoglobin A1c (4-6) % HEART Score - HEART Score EKG: Non-specific Age: 45-65 Risk factors: > 3 risk factors or hx of atherosclerotic disease Troponin: Troponin T < 0.010 ng/mL (0.00-0.029) 12/16/21 04:48 Troponin: < normal limit - Critical Actions Critical Actions: 4-6 pts:12-16.6% risk of adverse cardiac event. Should be admitted
[2021-12-18] MEDS: hydrALAZINE 20 MG/1 ML INJ IV PRN (00:19)
[2021-12-18 05:54] LABS: Basophils # (Auto) 0.1 K/mm3 (0.0-0.1); Basophils % (Auto) 0.7 % (0.0-1.8); Eosinophils # (Auto) 0.2 K/mm3 (0.0-0.4); Eosinophils % (Auto) 2.3 % (0.0-4.3); Hemoglobin 12.3 gm/dl (10.1-14.3); Lymphocytes % (Auto) 20.8 % (13.4-35.0); Mean Corpuscular HGB Conc 32 % (30-34); Mean Corpuscular Volume 80 fl (79-97); Monocytes # (Auto) 0.6 K/mm3 (0.0-0.8); Monocytes % (Auto) 6.1 % (0.0-7.3); Platelet Count 286 K/mm3 (140-440); Red Blood Count 4.86 M/mm3 (3.65-5.03); Red Cell Distribution Width 15.5 % (13.2-15.2)
[2021-12-18 06:01] LABS: INR 0.87 (0.87-1.13)
[2021-12-18 06:02] LABS: Partial Thromboplastin Time 25.5 Sec. (24.2-36.6)
[2021-12-18 06:14] LABS: Alanine Aminotransferase 17 units/L (7-56); Albumin 3.6 g/dL (3.9-5); Blood Urea Nitrogen 16 mg/dL (7-17); Calcium 9.2 mg/dL (8.4-10.2); Hemolysis Index 18
[2021-12-18 06:18] LABS: BUN/Creatinine Ratio 27
[2021-12-18] MEDS ORDERED: SODIUM CHLORIDE 0.9% 1000 ML 1,000 ML ONE (06:26)
[2021-12-18] MEDS ORDERED: INSULIN REGULAR, HUMAN 100 UNITS/1 ML ONE (06:30)
[2021-12-18] MEDS ORDERED: propofoL 200 MG/20 ML VIAL IV ONE ×4 (06:33→06:47)
[2021-12-18] MEDS ORDERED: MIDAZOLAM 2 MG/2 ML INJ ONE (06:47)
[2021-12-18] MEDS ORDERED: HYDROmorphone 1 MG/1 ML INJ ONE (06:47)
--- NOTE | 2021-12-18 07:00 | Anesthesia Consultation ---
Anesthesia Consult and Med Hx Date of service: 12/18/21 - Airway Anesthetic Teeth Evaluation: Good ROM Head & Neck: Adequate Mental/Hyoid Distance: Adequate Mallampati Class: Class III Intubation Access Assessment: Possibly Difficult - Pre-Operative Health Status ASA Pre-Surgery Classification: ASA3 Proposed Anesthetic Plan: MAC - Pulmonary Hx Respiratory Symptoms: No - Cardiovascular System Hx Hypertension: Yes Hx Coronary Artery Disease: Yes (negative ST and normal TTE this admission) Hx Heart Attack/AMI: No Hx Percutaneous Transluminal Coronary Angioplasty (PTCA): No Hx Cardia Arrhythmia: Yes (proufound bradycardia) Hx Pacemaker: No Hx Internal Defibrillator: No - Central Nervous System CVA: No - Endocrine Hx Renal Disease: No Hx Liver Disease: No Hx Insulin Dependent Diabetes: Yes (poorly controlled, A1c 12) Hx Thyroid Disease: No - Other Systems Hx Obesity: No - Additional Comments Anesthesia Medical History Comments: Presented s/p syncopal episode and found to have significant bradycardia while sleeping on telemetry this admission. Now scheduled for PPM placement.
--- NOTE | 2021-12-18 07:00 | Anesthesia Day of Surgery ---
Anesthesia Day of Surgery - Day of Surgery Patient Examined: Yes Patient H&P Reviewed: Yes Patient is NPO: Yes Beta Blockers: No (contraindicated)
[2021-12-18] MEDS ORDERED: LIDOCAINE (1%) 10 MG/1 ML VIAL 20 ML MDV ONE (07:04)
[2021-12-18] MEDS ORDERED: BUPIVACAINE/PF (0.25%) 2.5 MG/ML 10 ML VIAL INFILTRATI ONE (07:04)
[2021-12-18] MEDS ORDERED: SODIUM CHLORIDE IRRI 500 ML 500 ML IR ONE (07:04)
[2021-12-18] MEDS ORDERED: SODIUM CHLORIDE IRRI 1000 ML 1,000 ML, .VANCOMYCIN VIAL 1,000 MG IR ONE (07:17)
[2021-12-18] MEDS: INSULIN LISPRO 100 UNIT/ML SUB-Q SCH ×4 (07:30→22:09)
[2021-12-18] MEDS ORDERED: ceFAZolin/Water 2 GM/20 ML 2 GM/20 ML SYRINGE IV ONE (07:32)
--- NOTE | 2021-12-18 08:36 | Event Note ---
Date: 12/18/21 Electrophysiology Pt underwent dual chamber PPM implant without apparent complications. Recommend: 1. Check Chest Xray 2. Routine post op orders placed. 3. OK to start beta indigo if needed. 4. If otherwise stable, OK to discharge later today (same day discharge). Please prescribe short course of pain medication at time of discharge. Thang Reed MD
--- NOTE | 2021-12-18 08:38 | Operative Report ---
Operative Report Operative Report: INSERTION OF DUAL CHAMBER PACEMAKER 1 PATIENT NAME: Charlene Venegas : 62 MR#: [id number] DATE OF PROCEDURE: 12/18/21 HOSPITAL: [facility] OPERATOR: Thang Reed M.D. History: 61 year old fe with Sick Sinus Syndrome Pre Operative Diagnosis: Sick Sinus Syndrome Post Operative Diagnosis: Sick Sinus Syndrome COMPLICATIONS: None PROCEDURE: The risks, benefits, and alternatives were explained to the patient. The patient was prepped and draped in standard fashion for implantable pacemaker insertion following sterile preparation of the pectoral region. Local anesthesia was obtained by infiltration with 1% Lidocaine. A 4 cm incision was made in the infra-clavicular region.. At that point further dissection was carried out by blunt dissection and electro-cautery. A pocket was created. The vein was cannulated using technique. Using a peel away introducer, the ventricular lead was advanced to the RV and positioned to the . The helix was extended and endocardial measurements were made. Using a second peel away introducer in the vein, the atrial lead was advanced to the level of the right atrial . The helix was extended and endocardial measurements were made. After the attainment of acceptable endocardial values, both leads were sutured over their suture sleeves to the underlying tissue. Inspection was performed to rule out any bleeding. The pocket was irrigated with antibiotic solution. The pulse generator was then connected to the leads and the setscrews tightened appropriately. The pulse generator was placed in the newly formed pocket and connections were verified. The wound was closed using . A clean sterile dressin g was placed over the wound. The patient was returned to the room in stable condition without complication or sequelae. FINDINGS: The following endocardial parameters were obtained: Senior Education [employer]ist Model# Serial # Sensing Threshold Impedance RA 5076 [id number] 0.9mV 0.75V @ 0.4ms 494ohms RV 5076 [id number] 18.0mV 0.75V @ 0.4ms 741ohms PROGRAMMING: The implanted generator (Model # Arkoe S DR, Serial # [id number]) was programmed: Mode Lower Rate Maximum Rate AV/PV delay bpm bpm 180 msec/ 160 msec Pulse Amplitude Pulse Width Sensitivity RA 3.5Volts msec RV 3.5Volts msec CONCLUSIONS: Successful Dual Chamber Pacemaker Implant Estimated Blood Loss: <10 cc PLAN: Routine post op orders, CXR, F/u as OP, Enroll in remote monitoring Thang Reed M.D. cc: [facility], [place] [address]
--- NOTE | 2021-12-18 09:10 | Post Anesthesia Evaluation ---
- Post Anesthesia Evaluation Patient Participated: Yes Airway Patent: Yes Stable Respiratory Function: Yes Nausea/Vomiting: No Temp > 96.8F: Yes Pain Manageable: Yes Adequeate Hydration: Yes Anesthesia Complications: No
--- NOTE | 2021-12-18 10:02 | XRay Report ---
CHEST 1 VIEW 12/18/2021 8:56 AM INDICATION / CLINICAL INFORMATION: Pacemaker Postop. COMPARISON: 12/06/2021 FINDINGS: SUPPORT DEVICES: Pacemaker and leads are satisfactory in position HEART / MEDIASTINUM: No significant abnormality. LUNGS / PLEURA: No significant pulmonary or pleural abnormality. No pneumothorax. ADDITIONAL FINDINGS: No significant additional findings. IMPRESSION: 1. No acute findings. Signer Name: Eze Metcalf MD Signed: 12/18/2021 9:58 AM Workstation Name: [id number]
[2021-12-18] MEDS: ONDANSETRON 4 MG/2 ML INJ IV PRN (10:54)
[2021-12-18] MEDS: INSULIN NPH, HUMAN 100 UNIT/1 ML SUB-Q SCH ×2 (11:00→17:06)
[2021-12-18] MEDS: LOSARTAN 25 MG TAB PO SCH (12:13)
[2021-12-18] MEDS: ASPIRIN EC 325 MG TAB PO SCH (12:14)
[2021-12-18] MEDS: amLODIPine 10 MG TAB PO SCH (12:16)
--- NOTE | 2021-12-18 15:35 | Progress Note ---
Assessment and Plan 61 YO woman with h/o multivessel CAD which is being medically managed and DM who presented to hospital after sudden episode of syncope while shopping at a store. Telemetry monitoring during hospitalization has captured episodes of her heart slowing down with sinus bradycardia and rates in the low 30s during daytime hours. Echo during current hospitalization revealed normal LVEF with no significant valvular lesions. Assessment and plan: 1. Syncope likely due to underlying paroxysmal bradycardia 2. Episodes of profound sinus bradycardia and pauses suggestive of sinus node dysfunction. 3. Multivessel CAD with normal LV systolic function 4. DM with hyperglycemia, a1c 12.4 --Work-up in the emergency room showed hypoglycemia to 40, troponins were negative. Chest x-ray showed no acute findings. CT scan of the head shows no acute abnormality. EP cardiology is consulted for possible pacemaker placement She underwent a Lexiscan thallium stress test 12/17, the result is normal myocardial perfusion study. She is s/p pacemaker implant today morning for syncope and transient, Blood glucose at 400s this morning, initiated on insulin If patient clinically stable and blood glucose improved possible DC tomorrow morning Subjective Date of service: 12/18/21 Principal diagnosis: Syncope Interval history: Patient seen and examined. Medical records and medication list reviewed. No acute event overnight noted by the RN. Patient denies any chest pain or difficulty breathing. Status post PPM placement today blood glucose Higher than 400 this morning Discussed plan of care at bedside with patient. Objective - Exam Narrative Exam: GENERAL: well-developed and well-nourished lying on bed appeared to be in no discomfort. HEENT: Normocephalic. Atraumatic. No conjunctival congestion or icterus. Patient has moist mucous membranes. NECK: Supple. Trachea midline. CHEST/LUNGS: Clear to auscultated bilaterally, breathing nonlabored. No wheezes crackles or rhonchi. PPM on the left chest HEART/CARDIOVASCULAR: S1 and S2 positive. ABDOMEN: Abdomen is soft, nontender. Patient has normal bowel sounds. SKIN: There is no rash. Warm and dry. NEURO: No focal motor deficit. Follows command. MUSCULOSKELETAL: No joint effusion or tenderness. EXTRIMITY: No edema, no cyanosis or clubbing. PSYCH: Cooperative. - Constitutional Vitals: Vital Signs - 12hr 12/18/21 12/18/21 12/18/21 03:39 04:12 10:00 Temperature 97.4 F L Pulse Rate 91 H Respiratory 18 Rate Blood Pressure 104/62 O2 Sat by Pulse 95 98 97 Oximetry 12/18/21 11:48 Temperature 98.7 F Pulse Rate 91 H Respiratory 18 Rate Blood Pressure 155/86 O2 Sat by Pulse 95 Oximetry - Labs CBC & Chem 7: 12/18/21 05:37 12/18/21 05:37 Labs: Abnormal lab results 12/17/21 12/17/21 12/17/21 Range/Units 11:38 16:25 21:22 MCH (28-32) pg RDW (13.2-15.2) % Seg Neutrophils % (40.0-70.0) % Carbon Dioxide (22-30) mmol/L Glucose (65-100) mg/dL POC Glucose 292 H 359 H 331 H (70-105) mg/dL Albumin (3.9-5) g/dL 12/18/21 12/18/21 12/18/21 Range/Units 05:37 05:37 11:48 MCH 25 L (28-32) pg RDW 15.5 H (13.2-15.2) % Seg Neutrophils % 70.1 H (40.0-70.0) % Carbon Dioxide 20 L (22-30) mmol/L Glucose 413 H (65-100) mg/dL POC Glucose 240 H (70-105) mg/dL Albumin 3.6 L (3.9-5) g/dL HEART Score - HEART Score EKG: Non-specific Age: 45-65 Risk factors: > 3 risk factors or hx of atherosclerotic disease Troponin: Troponin T < 0.010 ng/mL (0.00-0.029) 12/16/21 04:48 Troponin: < normal limit - Critical Actions Critical Actions: 4-6 pts:12-16.6% risk of adverse cardiac event. Should be admi tted
[2021-12-19] MEDS: INSULIN LISPRO 100 UNIT/ML SUB-Q SCH ×2 (08:00→12:27)
[2021-12-19] MEDS: INSULIN NPH, HUMAN 100 UNIT/1 ML SUB-Q SCH (08:00)
[2021-12-19 08:36] VITALS: BP 159/77
--- NOTE | 2021-12-19 09:52 | Progress Note ---
Assessment and Plan - Patient Problems (1) SSS (sick sinus syndrome) Current Visit: Yes Status: Acute (2) Syncope Current Visit: Yes Status: Acute Subjective Date of service: 12/19/21 Principal diagnosis: Syncope Interval history: NO C/O Objective Vital Signs Temp Pulse Resp BP Pulse Ox 12/19/21 08:35 98.5 F 85 16 159/77 98 12/19/21 05:13 97.8 F 18 196/92 12/19/21 05:00 77 98 12/18/21 23:00 98.0 F 97 H 17 180/79 99 12/18/21 20:32 98.2 F 100 H 18 148/72 98 12/18/21 16:25 98.7 F 97 H 18 185/85 97 12/18/21 11:48 98.7 F 91 H 18 155/86 95 12/18/21 10:00 97 - Physical Examination HEENT: Positive: PERRL Neck: Positive: neck supple Cardiac: Positive: Regular Rhythm Lungs: Positive: clear to auscultation Neuro: Positive: Grossly Intact Abdomen: Positive: Soft Skin: Positive: Clear, Other (PPM SITE IS OK) Extremities: Absent: edema
[2021-12-19] MEDS: ASPIRIN EC 325 MG TAB PO SCH (10:18)
[2021-12-19] MEDS: LOSARTAN 25 MG TAB PO SCH (10:18)
[2021-12-19] MEDS: amLODIPine 10 MG TAB PO SCH (10:18)
[2021-12-19] MEDS: ONDANSETRON 4 MG/2 ML INJ IV PRN (10:34)
--- NOTE | 2021-12-19 13:13 | Discharge Summary ---
Providers - Providers Date of Admission: 12/15/21 23:17 Date of discharge: 12/19/21 Attending physician: ANTIONE GRAY 12/15/21 Consult to Cardiac Rehabilitation [CONS] Routine Reason For Exam: Phase I 12/15/21 23:17 Consult to Cardiology [CONS] Routine Consulting Provider: PORSHA SHEARER Reason For Exam: Chest Pain,Syncope Consult to Dietitian/Nutrition [CONS] Routine Physician Instructions: Reason For Exam: Reason for Consult: Diet education Primary care physician: YAIMA HINKLE Hospitalization Condition: Good Hospital course: 61 YO woman with h/o multivessel CAD which is being medically managed and DM who presented to hospital after sudden episode of syncope while shopping at a store. Telemetry monitoring during hospitalization has captured episodes of her heart slowing down with sinus bradycardia and rates in the low 30s during daytime hours. Echo during current hospitalization revealed normal LVEF with no significant valvular lesions. --Work-up in the emergency room showed hypoglycemia to 40, troponins were negative. Chest x-ray showed no acute findings. CT scan of the head shows no acute abnormality. EP cardiology is consulted for possible pacemaker placement She underwent a Lexiscan thallium stress test 12/17, the result is normal myocardial perfusion study. She is s/p pacemaker implant today morning for syncope and transient, Blood glucose at 400s this morning, initiated on insulin If patient clinically stable and blood glucose improved possible DC tomorrow morning Discharge diagnosis: 1. Syncope likely due to underlying paroxysmal bradycardia 2. Episodes of profound sinus bradycardia and pauses suggestive of sinus node dysfunction. 3. Multivessel CAD with normal LV systolic function 4. DM with hyperglycemia, a1c 12.4 Disposition: 01 HOME / SELF CARE / HOMELESS Final Discharge Diagnosis (Prints w/discharge instructions): 1. Syncope likely due to underlying paroxysmal bradycardia. 2. Episodes of profound sinus bradycardia and pauses suggestive of sinus node dysfunction. 3. Multivessel CAD with normal LV systolic function. 4. DM with hyperglycemia, a1c 12.4 Time spent for discharge: 34 minutes Core Measure Documentation - Palliative Care Palliative Care/ Comfort Measures: Not Applicable - Core Measures Any of the following diagnoses?: none Exam - Physical Exam Narrative exam: GENERAL: well-developed and well-nourished lying on bed appeared to be in no discomfort. HEENT: Normocephalic. Atraumatic. No conjunctival congestion or icterus. Patient has moist mucous membranes. NECK: Supple. Trachea midline. CHEST/LUNGS: Clear to auscultated bilaterally, breathing nonlabored. No wheezes crackles or rhonchi. PPM on the left chest HEART/CARDIOVASCULAR: S1 and S2 positive. ABDOMEN: Abdomen is soft, nontender. Patient has normal bowel sounds. SKIN: There is no rash. Warm and dry. NEURO: No focal motor deficit. Follows command. MUSCULOSKELETAL: No joint effusion or tenderness. EXTRIMITY: No edema, no cyanosis or clubbing. PSYCH: Cooperative. - Constitutional Vitals: Temp Pulse Resp BP Pulse Ox 98.5 F 85 16 159/77 98 12/19/21 08:35 12/19/21 11:41 12/19/21 08:35 12/19/21 08:35 12/19/21 11:30 Plan Activity: advance as tolerated Weight Bearing Status: Weight Bear as Tolerated Diet: low fat, low salt, diabetic Wound: keep clean and dry Special Instructions: record daily BP diary, record blood sugar diary Additional Instructions: Please check blood glucose daily before each meal and bedtime. Resume your insulin regimen at home. Compliant with diabetic diet. Follow-up with advance agent in 1 week Follow up with: YAIMA HINKLE MD [Primary Care Provider] - 3-5 Days BABAR DEXTER MD [Staff Physician] - 7 Days Prescriptions: amLODIPine 10 mg PO QDAY #60 tablet Losartan [Cozaar] 50 mg PO QDAY #60 tablet Aspirin EC [Halfprin EC] 81 mg PO QDAY #30 tablet. traMADoL [Ultram 50 MG tab] 50 mg PO Q6H PRN #14 tablet PRN Reason: Pain, Moderate (4-6)
--- NOTE | 2021-12-20 15:03 | Electrocardiograph Report ---
[facility] Test Date: 2021-12-19 Test Time: 08:57:13 Pat Name: JOHAN JUAN Department: Room: A458 1 Gender: F Operations Manager Assistant: HARRY : 1960 Requested By: BABAR DEXTER Order Number: [id number] Reading MD: Jamie Martinez Measurements Intervals [place] Rate: 84 P: 67 [place]: 129 QRS: 26 QRSD: 79 T: 71 QT: 377 QTc: 447 Interpretive Statements Sinus rhythm Consider left ventricular hypertrophy [id number] Compared to ECG 12/16/2021 12:04:55 ST (T wave) deviation now present Electronically Signed On 12-20-2021 15:03:18 EDT by Jamie Martinez
== END 2021-12-19 15:18 | disposition home or self-care (01) | DRG 244 ==
LOC: ED 19:48 → 4A 23:17
PROVIDERS: ADMIT Internal Medicine Geriatric Medicine; ATTEND Internal Medicine
PROC: 0JH606Z Insertion of Pacemaker, Dual Chamber into Chest Subcutaneous Tissue and Fascia, Open Approach (ICD-10-PCS; principal; 2021-12-18)
PROC: 02H63JZ Insertion of Pacemaker Lead into Right Atrium, Percutaneous Approach (ICD-10-PCS; 2021-12-18)
PROC: 02HK3JZ Insertion of Pacemaker Lead into Right Ventricle, Percutaneous Approach (ICD-10-PCS; 2021-12-18)
DX: I49.5 Sick sinus syndrome (principal); R07.89 Other chest pain; R00.1 Bradycardia, unspecified; R55 Syncope and collapse; I10 Essential (primary) hypertension; E11.65 Type 2 diabetes mellitus with hyperglycemia; R06.89 Other abnormalities of breathing; Z80.3 Family history of malignant neoplasm of breast; I25.10 Atherosclerotic heart disease of native coronary artery without angina pectoris; Z85.3 Personal history of malignant neoplasm of breast
CPT/HCPCS: 33208; 36415; 70450; 71045; 78452; 80048; 80053; 82550; 82962; 83036; 83735; 84443; 84484; 85025; 85379; 85610; 85730; 86850; 86900; 86901; 93005; 93017; 93306; 93880; G0378; J2354; J3490; J7120; Q0162; Q9967; A9502; C1781; C1785; C1892; C1898; C8929; J0360; J0690; J1170; J1815; J2250; J2270; J2405; J2704; J2785; J7030; J7040